=== PATIENT | male | born 1980 | race Caucasian/White ===

== ENCOUNTER 2017-12-18 13:09 | Emergency (ER) | payer OTHER ==
[2017-12-18 13:14] VITALS: TEMP 99.2
--- NOTE | 2017-12-18 15:04 | ED ---
Extremity Problem HPI - General Chief complaint: Extremity Problem,Nontraumatic Stated complaint: poss DVT Time Seen by Provider: 12/18/17 13:42 Source: patient, EMS, RN notes reviewed Mode of arrival: EMS Limitations: no limitations - History of Present Illness Initial comments: This a 37-year-old male presents emergency Department chief complaint of left leg pain. Patient states is concerning it that he may have a DVT. Patient has a history DVT in his left leg. Patient states he noticed an area in his medial thigh region that is a ropelike structure is painful and firm. Patient states he also has swelling to his left ankle he does admit that his been doing large amount moving walking up and down steps. He states proximal 42 steps. Patient denies paresthesias no trauma that he knows of. Patient denies chest pain or shortness of breath. - Related Data Previous Rx's Medication Instructions Recorded Naproxen 500 mg PO BID #30 tablet 12/18/17 Allergies Allergy/AdvReac Type Severity Reaction Status Date / Time lisinopril Allergy Intermediate Rapid Verified 12/18/17 14:04 Heart Rate ibuprofen [From Motrin] AdvReac Intermediate Nausea Verified 12/18/17 14:04 Review of Systems ROS Statement: Those systems with pertinent positive or pertinent negative responses have been documented in the HPI. ROS Other: All systems not noted in ROS Statement are negative. Past Medical History Past Medical History: Deep Vein Thrombosis (DVT), Hypertension Additional Past Medical History / Comment(s): bruised ribs, used to have HTN History of Any Multi-Drug Resistant Organisms: None Reported Past Surgical History: No Surgical Hx Reported Additional Past Surgical History / Comment(s): Stitches Past Anesthesia/Blood Transfusion Reactions: No Reported Reaction Additional Past Anesthesia/Blood Transfusion Reaction / Comment(s): Never had either Past Psychological History: No Psychological Hx Reported Smoking Status: Current every day smoker Past Alcohol Use History: Daily Past Drug Use History: Marijuana, Prescription Drug Abuse - Past Family History Mother Family Medical History: Cancer Additional Family Medical History / Comment(s): Mother at age 53 from cancer to the bones. Father Family Medical History: Diabetes Mellitus Additional Family Medical History / Comment(s): Father is alive at age 63 with history of diabetes. Sister(s) Additional Family Medical History / Comment(s): Patient has 2 half sisters that are healthy. He does not have any brothers. He has 1 son and 1 daughter that are healthy with no major medical problems. General Exam Limitations: no limitations General appearance: alert, in no apparent distress Head exam: Present: atraumatic, normocephalic, normal inspection Respiratory exam: Present: normal lung sounds bilaterally. Absent: respiratory distress, wheezes, rales, rhonchi, stridor Cardiovascular Exam: Present: regular rate, normal rhythm, normal heart sounds. Absent: systolic murmur, diastolic murmur, rubs, gallop, clicks Extremities exam: Present: other (Left side just proximal to the knee there is appears very superficial thrombophlebitis ropelike structure Tegretol palpation mild erythema, there is no calf tenderness or swelling on the medial ankle and foot region is mildly tender. Pulses are equal bilaterally) Skin exam: Present: warm, dry, intact, normal color. Absent: rash Course Vital Signs 12/18/17 13:12 Temperature 99.2 F Pulse Rate 77 Respiratory 20 Rate Blood Pressure 166/101 O2 Sat by Pulse 99 Oximetry Medical Decision Making - Medical Decision Making 37-year-old male presents from for left leg pain. Patient had NEGATIVE FOR ACUTE DVT. PATIENT HAS SUPERFICIAL THROMBOPHLEBITIS. PATIENT WAS STARTED ON NAPROXEN HE STATES IBUPROFEN JUST UPSETS HIS STOMACH. HE IS ADVISED TO TAKE WITH FOOD. PATIENT WILL RETURN FOR ANY WORSENING SYMPTOMS. PATIENT WILL FOLLOW -UP WITH ON-CALL primary care physician. Disposition Clinical Impression: Superficial thrombophlebitis Disposition: HOME SELF-CARE Condition: Stable Instructions: Superficial Thrombophlebitis (ED) Additional Instructions: Please return to the Emergency Department if symptoms worsen or any other concerns. Prescriptions: Naproxen 500 mg PO BID #30 tablet Is patient prescribed a controlled substance at d/c from ED?: No Referrals: Clementina Ramos MD [STAFF PHYSICIAN] - 1-2 days Time of Disposition: 15:50
--- NOTE | 2017-12-18 15:37 | US ---
EXAMINATION TYPE: US venous doppler duplex LE LT DATE OF EXAM: 12/18/2017 1:34 PM COMPARISON: US 2017 CLINICAL HISTORY: Pain. Left leg pain, history of LLE DVT SIDE PERFORMED: Left TECHNIQUE: The lower extremity deep venous system is examined utilizing real time linear array sonog makenna with graded compression, doppler sonography and color-flow sonography. VESSELS IMAGED: External Iliac Vein (EIV) Common Femoral Vein Deep Femoral Vein Greater Saphenous Vein * Femoral Vein Popliteal Vein Small Saphenous Vein * Proximal Calf Veins (* superficial vessels) Left Leg: Appears negative for DVT Scanned at patient's area's of pain: appears positive for thrombus at upper mid and distal medial t high and at ankle within superficial vessel that appears to be a branch of the greater saphenous vein . IMPRESSION: 1. Superficial thrombophlebitis. 2. No evidence for DVT at this time.
--- NOTE | 2017-12-18 16:10 | XR ---
Left foot HISTORY: Left foot pain Correlation to prior foot 04/29/2015 There is cortical thickening at the proximal phalanx of the fourth digit of the left foot, possible p eriosteal reaction which is new in the interval. No dislocation. Alignment is maintained. Joint space s show a similar appearance. Degenerative change present at the first metatarsophalangeal joint. Ther e is a plantar calcaneal spur present. IMPRESSION: Cortical thickening at the fourth digit as described, correlate for history of trauma. Co nsider foot MRI. Plantar calcaneal spur.
[2017-12-18 16:12] VITALS: BP 172/90; PULSE 60; RESP 18
== END 2017-12-18 16:11 | disposition home or self-care (01) ==
LOC: EC 13:09
DX: I80.02 Phlebitis and thrombophlebitis of superficial vessels of left lower extremity (principal); F17.200 Nicotine dependence, unspecified, uncomplicated; Z86.718 Personal history of other venous thrombosis and embolism; Z88.6 Allergy status to analgesic agent; Z88.8 Allergy status to other drugs, medicaments and biological substances
CPT/HCPCS: 99284

== ENCOUNTER 2018-08-25 16:34 | Observation (INO) | payer OTHER ==
--- NOTE | 2018-08-25 17:26 | ED ---
General Adult HPI - General Chief complaint: Extremity Injury, Lower Stated complaint: RT LEG PAIN, POSS BLOODCLOT Source: patient, RN notes reviewed, old records reviewed Mode of arrival: ambulatory Limitations: no limitations - History of Present Illness Initial comments: 38-year-old male patient past medical history of DVT this ED with right posterior calf pain. Patient states that he stepped taking anticoagulants approximately 3 years ago he had medical advice. Patient states that approximately 2 days ago he began developing pain in his right posterior calf. Patient additionally has pain behind his knee. Patient states this feels similar to when he had a DVT in the past. Patient denies chest pain, shortness of breath, abdominal pain, nausea around area, fever chills, any other symptoms. Systemic: Pt denies fatigue, myalgia, fever/chills, rash. Pt denies weakness, night sweats, weight loss. Neuro: Pt denies headache, visual disturbances, syncope or pre-syncope. HEENT: Pt denies ocular discharge or irritation, otalgia, rhinorrhea, pharyngitis or notable lymphadenopathy. Cardiopulmonary: Pt denies chest pain, SOB, heart palpitations, dyspnea on exertion. Abdominal/GI: Pt denies abdominal pain, n/v/d. : Pt denies dysuria, burning w/ urination, frequency/urgency. Denies new onset urinary or bowel incontinence. MSK: Pt denies myalgia, loss of strength or function in extremities. Neuro: Pt denies new onset weakness, paresthesias. - Related Data Previous Rx's Medication Instructions Recorded Apixaban [Eliquis] 5 mg PO BID #60 tab 08/26/18 traMADol HCL [Ultram] 50 mg PO Q4HR PRN 3 Days #18 tab 08/26/18 Allergies Allergy/AdvReac Type Severity Reaction Status Date / Time lisinopril Allergy Intermediate Rapid Verified 08/25/18 20:57 Heart Rate ibuprofen [From Motrin] AdvReac Intermediate Nausea Verified 08/25/18 20:57 Review of Systems ROS Statement: Those systems with pertinent positive or pertinent negative responses have been documented in the HPI. ROS Other: All systems not noted in ROS Statement are negative. Past Medical History Past Medical History: Deep Vein Thrombosis (DVT), Hypertension Additional Past Medical History / Comment(s): bruised ribs, used to have HTN History of Any Multi-Drug Resistant Organisms: None Reported Past Surgical History: No Surgical Hx Reported Additional Past Surgical History / Comment(s): Stitches Past Anesthesia/Blood Transfusion Reactions: No Reported Reaction Additional Past Anesthesia/Blood Transfusion Reaction / Comment(s): Never had either Past Psychological History: No Psychological Hx Reported Smoking Status: Current every day smoker Past Alcohol Use History: Occasional Past Drug Use History: None Reported, Marijuana, Prescription Drug Abuse - Past Family History Mother Family Medical History: Cancer Additional Family Medical History / Comment(s): Mother at age 53 from cancer to the bones. Father Family Medical History: Diabetes Mellitus Additional Family Medical History / Comment(s): Father is alive at age 63 with history of diabetes. Sister(s) Additional Family Medical History / Comment(s): Patient has 2 half sisters that are healthy. He does not have any brothers. He has 1 son and 1 daughter that are healthy with no major medical problems. General Exam - General Exam Comments Initial Comments: Constitutional: NAD, AOX3, Pt has pleasant affect. HEENT: NC/AT, trachea midline, neck supple, no lymphadenopathy. Posterior pharynx non erythematous, without exudates. External ears appear normal, without discharge. Mucous membranes moist. Eyes PERRLA, EOM intact. There is no scleral icterus. No pallor noted. Cardiopulmonary: RRR, no murmurs, rubs or gallops, no JVD noted. Lungs CTAB in anterior and posterior bailey. No peripheral edema. Abdominal exam: Abdomen soft and non-distended. Abdomen non-tender to palpation in all 4 quadrants. Bowel sounds active in LLQ. No hepatosplenomegaly. No ecchymosis Neuro: CN II-XII grossly intact. No nuchal rigidity. MSK: R posterior calf tenderness and posterior knee tenderness. Homans sign negative. L posterior calf non tender to palpation, L homans sign negative. Posterior tibialis, dosalis pedis and radial pulse +2 bilaterally. Sensation intact in upper and lower extremities. Full active ROM in upper and lower extremities, 5/5 stregnth. Pt ambulatory without difficulty. Limitations: no limitations Course Vital Signs 08/25/18 08/25/18 16:37 19:30 Temperature 98.1 F 98 F Pulse Rate 74 71 Respiratory 18 16 Rate Blood Pressure 169/103 159/90 O2 Sat by Pulse 100 98 Oximetry Medical Decision Making - Medical Decision Making 38-year-old male patient past medical history of DVT this ED with right posterior calf pain. Patient states that he stepped taking anticoagulants approximately 3 years ago he had medical advice. Patient states that approximately 2 days ago he began developing pain in his right posterior calf. Patient additionally has pain behind his knee. Patient states this feels similar to when he had a DVT in the past. Patient denies chest pain, shortness of breath, abdominal pain, nausea around area, fever chills, any other symptoms. Vital signs WNL upon presentation to ED. physical exam displayed right posterior calf tenderness, right posterior knee tenderness, right positive Homans sign. Distal pulses intact. No other pathologic findings identified on O2 investigations revealed nonpassive CBC, CMP, coagulation studies. EKG is not concerning for acute ischemia. Laboratory venous Doppler revealed right leg DVT from proximal calf veins through proximal femoral. Patient heparinized and admitted to the floor. Case discussed with Dr. Sherman. - Lab Data Result diagrams: 08/27/18 07:12 08/25/18 17:45 Lab Results 08/25/18 08/25/18 08/25/18 Range/Units 17:45 17:45 17:45 WBC 5.7 (3.8-10.6) k/uL RBC 5.55 (4.30-5.90) m/uL Hgb 17.0 (13.0-17.5) gm/dL Hct 52.6 (39.0-53.0) % MCV 94.8 (80.0-100.0) fL MCH 30.7 (25.0-35.0) pg MCHC 32.4 (31.0-37.0) g/dL RDW 13.7 (11.5-15.5) % Plt Count 140 L (150-450) k/uL Neutrophils % 64 % Lymphocytes % 22 % Monocytes % 8 % Eosinophils % 3 % Basophils % 0 % Neutrophils # 3.7 (1.3-7.7) k/uL Lymphocytes # 1.3 (1.0-4.8) k/uL Monocytes # 0.5 (0-1.0) k/uL Eosinophils # 0.2 (0-0.7) k/uL Basophils # 0.0 (0-0.2) k/uL PT 10.8 (9.0-12.0) sec INR 1.0 (<1.2) APTT 27.1 (22.0-30.0) sec Sodium 139 (137-145) mmol/L Potassium 4.4 (3.5-5.1) mmol/L Chloride 101 (98-107) mmol/L Carbon Dioxide 28 (22-30) mmol/L Anion Gap 10 mmol/L BUN 7 L (9-20) mg/dL Creatinine 0.56 L (0.66-1.25) mg/dL Est GFR (CKD-EPI)AfAm >90 (>60 ml/min/1.73 sqM) Est GFR (CKD-EPI)NonAf >90 (>60 ml/min/1.73 sqM) Glucose 91 (74-99) mg/dL Calcium 9.6 (8.4-10.2) mg/dL Total Bilirubin 1.1 (0.2-1.3) mg/dL AST 19 (17-59) U/L ALT 21 (21-72) U/L Alkaline Phosphatase 65 (38-126) U/L Total Protein 7.0 (6.3-8.2) g/dL Albumin 3.8 (3.5-5.0) g/dL - EKG Data -: EKG Interpreted by Me (and dr sherman) EKG Comments: Ventricular rate 71,. 124, QRS 98, QT/QTC 392/4.5. Normal sinus rhythm with sinus arrhythmia. incomplete R branch block. no concerns for acute ischemia. Disposition Clinical Impression: DVT (deep venous thrombosis) Disposition: ADMITTED IP TO THIS [facility] Condition: Good
[2018-08-25 18:01] LABS: Basophils % (A) 0 %; Eosinophils # (A) 0.2 k/uL (0-0.7); Eosinophils % (A) 3 %; HCT 52.6 % (39.0-53.0); Lymphocytes # (A) 1.3 k/uL (1.0-4.8); Lymphocytes % (A) 22 %; MCH 30.7 pg (25.0-35.0); MCHC 32.4 g/dL (31.0-37.0); MCV 94.8 fL (80.0-100.0); Mean Platelet Volume 7.9; Monocytes # (A) 0.5 k/uL (0-1.0); Monocytes % (A) 8 %; Neutrophils # (A) 3.7 k/uL (1.3-7.7); Neutrophils % (A) 64 %; Platelet Count 140 k/uL (150-450); RBC 5.55 m/uL (4.30-5.90); RDW 13.7 % (11.5-15.5); WBC 5.7 k/uL (3.8-10.6)
--- NOTE | 2018-08-25 18:11 | US ---
EXAMINATION TYPE: US venous doppler duplex LE DATE OF EXAM: 08/25/2018 5:45 PM COMPARISON: NONE CLINICAL HISTORY: Pain. rt leg pain, h/o superficial and deep DVT, not on thinners SIDE PERFORMED: bilateral TECHNIQUE: The lower extremity deep venous system is examined utilizing real time linear array sonog makenna with graded compression, doppler sonography and color-flow sonography. VESSELS IMAGED: External Iliac Vein (EIV) Common Femoral Vein Deep Femoral Vein Greater Saphenous Vein * Femoral Vein Popliteal Vein Small Saphenous Vein * Proximal Calf Veins (* superficial vessels) Right Leg: Appears positive with thrombus noted from proximal calf veins extending up through prox f emoral vein, noncompressible veins with no color flow detected. Left Leg: Appears negative for DVT IMPRESSION: No evidence of deep venous thrombosis in the left leg. There is acute deep venous thrombo sis in the right leg involving femoral popliteal and tibial veins.
[2018-08-25 18:13] LABS: ALT 21 U/L (21-72); AST 19 U/L (17-59); Albumin 3.8 g/dL (3.5-5.0); Alkaline Phosphatase 65 U/L (38-126); Anion Gap 10 mmol/L; Blood Urea Nitrogen 7 mg/dL (9-20); Calcium 9.6 mg/dL (8.4-10.2); Carbon Dioxide 28 mmol/L (22-30); Chloride 101 mmol/L (98-107); Glucose 91 mg/dL (74-99); Partial Thromboplastin Time 27.1 sec (22.0-30.0); Potassium 4.4 mmol/L (3.5-5.1); Prothrombin Time 10.8 sec (9.0-12.0); Sodium 139 mmol/L (137-145); Total Bilirubin 1.1 mg/dL (0.2-1.3)
[2018-08-25] MEDS ORDERED: HYDROcodone/APAP 5-325MG 1 EACH TAB PO STA ×2 (19:11→22:07)
[2018-08-25] MEDS ORDERED: HEPARIN SODIUM,PORCINE 5,000 UNIT/ML 1 ML VIAL IV STA (20:24)
[2018-08-25] MEDS ORDERED: NALOXONE 0.4 MG/ML 1 ML VIAL IV PRN (20:42)
[2018-08-25] MEDS ORDERED: ACETAMINOPHEN TAB 325 MG TAB PO PRN (20:42)
[2018-08-25] MEDS ORDERED: NICOTINE 14MG/24HR PATCH TRANSDERM STA (22:07)
[2018-08-26] MEDS ORDERED: HEPARIN SODIUM,PORCINE 10,000 UNIT/ML 1 ML VIAL IV ONE (00:10)
[2018-08-26] MEDS ORDERED: HEPARIN SODIUM,PORCINE 5,000 UNIT/ML 1 ML VIAL IV PRN (00:10)
[2018-08-26] MEDS ORDERED: HYDROcodone/APAP 5-325MG 1 EACH TAB PO PRN (00:15)
[2018-08-26] MEDS: HYDROcodone/APAP 5-325MG 1 EACH TAB PO PRN ×5 (01:25→23:52)
[2018-08-26] MEDS: HEPARIN SOD,PORK IN 0.45% NACL 25,000 UNIT in 0.45% NACL 1 250ML.BAG IV SCH ×2 (01:29→17:52)
[2018-08-26 08:11] LABS: Basophils % (A) 1 %; Eosinophils # (A) 0.2 k/uL (0-0.7); Eosinophils % (A) 3 %; HCT 51.1 % (39.0-53.0); HGB 16.6 gm/dL (13.0-17.5); Lymphocytes # (A) 1.5 k/uL (1.0-4.8); Lymphocytes % (A) 28 %; MCH 31.3 pg (25.0-35.0); MCHC 32.5 g/dL (31.0-37.0); MCV 96.2 fL (80.0-100.0); Monocytes # (A) 0.4 k/uL (0-1.0); Monocytes % (A) 7 %; Neutrophils # (A) 3.2 k/uL (1.3-7.7); Neutrophils % (A) 60 %; Platelet Count 138 k/uL (150-450); RBC 5.31 m/uL (4.30-5.90); RDW 13.6 % (11.5-15.5); WBC 5.4 k/uL (3.8-10.6)
[2018-08-26 08:21] LABS: Partial Thromboplastin Time 43.7 sec (22.0-30.0); Prothrombin Time 10.4 sec (9.0-12.0)
[2018-08-26] MEDS: KETOROLAC 30 MG/ML 1 ML VIAL IVP PRN (16:09)
--- NOTE | 2018-08-26 16:26 | P.HPIM ---
History of Present Illness -38-year-old male came in with complaints of right leg pain found to have extensive DVT involving femoral popliteal and tibial veins. Patient had history of DVT in the past and then a superficial thrombus patient was on anti- correlation the past. Patient denied any fever chills patient denied any chest pain nausea vomiting abdominal pain patient did not have any recent surgery is a smoker denied any family history of cancers are blood clots in the family. Patient denied any recent prolonged travel. Is comparing of severe pain in the right leg Review of Systems REVIEW OF SYSTEMS: CONSTITUTIONAL: No fever, no malaise, no fatigue. HEENT: No recent visual problems or hearing problems. Denied any sore throat. CARDIOVASCULAR: No chest pain, orthopnea, PND, no palpitations, no syncope. PULMONARY: No shortness of breath, no cough, no hemoptysis. GASTROINTESTINAL: No diarrhea, no nausea, no vomiting, no abdominal pain. NEUROLOGICAL: No headaches, no weakness, no numbness. HEMATOLOGICAL: Denies any bleeding or petechiae. GENITOURINARY: Denies any burning micturition, frequency, or urgency. MUSCULOSKELETAL/RHEUMATOLOGICAL: Denies any joint pain, swelling, or any muscle pain. ENDOCRINE: Denies any polyuria or polydipsia. The rest of the 14-point review of systems is negative. Past Medical History Past Medical History: Deep Vein Thrombosis (DVT), Hypertension Additional Past Medical History / Comment(s): bruised ribs, used to have HTN History of Any Multi-Drug Resistant Organisms: None Reported Past Surgical History: No Surgical Hx Reported Additional Past Surgical History / Comment(s): Stitches Past Anesthesia/Blood Transfusion Reactions: No Reported Reaction Additional Past Anesthesia/Blood Transfusion Reaction / Comment(s): Never had either Past Psychological History: No Psychological Hx Reported Smoking Status: Current every day smoker Past Alcohol Use History: Occasional Additional Past Alcohol Use History / Comment(s): Patient is a smoker one pack per day since he was 19 years of age. He states he uses marijuana rarely maybe about once a month. Patient does have history of prescription drug abuse with [place]. Drinks about a pack of a light beer a day Past Drug Use History: None Reported, Marijuana, Prescription Drug Abuse - Past Family History Mother Family Medical History: Cancer Additional Family Medical History / Comment(s): Mother at age 53 from cancer to the bones. Father Family Medical History: Diabetes Mellitus Additional Family Medical History / Comment(s): Father is alive at age 63 with history of diabetes. Sister(s) Additional Family Medical History / Comment(s): Patient has 2 half sisters that are healthy. He does not have any brothers. He has 1 son and 1 daughter that are healthy with no major medical problems. Medications and Allergies Home Medications Medication Instructions Recorded Confirmed Type Apixaban [Eliquis] 5 mg PO BID #60 tab 08/26/18 Rx traMADol HCL [Ultram] 50 mg PO Q4HR PRN 3 Days #18 tab 08/26/18 Rx Allergies Allergy/AdvReac Type Severity Reaction Status Date / Time lisinopril Allergy Intermediate Rapid Verified 08/25/18 20:57 Heart Rate ibuprofen [From Motrin] AdvReac Intermediate Nausea Verified 08/25/18 20:57 Physical Exam Vitals: Vital Signs Temp Pulse Pulse Pulse Resp BP BP 08/26/18 15:00 98.2 F 69 14 08/26/18 07:38 98.1 F 71 16 154/93 08/25/18 23:00 98.1 F 70 16 155/92 08/25/18 22:48 98.2 F 74 16 148/78 08/25/18 19:30 98 F 71 16 159/90 08/25/18 16:37 98.1 F 74 18 169/103 Pulse Ox 08/26/18 15:00 98 08/26/18 07:38 98 08/25/18 23:00 98 08/25/18 22:48 98 08/25/18 19:30 98 08/25/18 16:37 100 Intake and Output 08/26/18 08/26/18 08/26/18 06:59 14:59 22:59 Intake Total 1238.448 Output Total 400 Balance -400 1238.448 Intake: Intake, IV Titration 142.448 Amount Heparin Sod,Pork in 0.45% 142.448 NaCl 25,000 unit In 0.45 % NaCl 1 250ml.bag @ 18 UNITS/KG/HR 17.55 mls/hr IV .[id number] FOR[facility], 1928–1983 Rx#: [id number] Oral 1096 Output: Urine 400 PHYSICAL EXAMINATION: GENERAL: The patient is alert and oriented x3, not in any acute distress. Well developed, well nourished. HEENT: Pupils are round and equally reacting to light. EOMI. No scleral icterus. No conjunctival pallor. Normocephalic, atraumatic. No pharyngeal erythema. No thyromegaly. CARDIOVASCULAR: S1 and S2 present. No murmurs, rubs, or gallops. PULMONARY: Chest is clear to auscultation, no wheezing or crackles. ABDOMEN: Soft, nontender, nondistended, normoactive bowel sounds. No palpable organomegaly. MUSCULOSKELETAL: No joint swelling or deformity. EXTREMITIES: No cyanosis, clubbing, and does have mild edema of the right leg along with some tenderness NEUROLOGICAL: Gross neurological examination did not reveal any focal deficits. SKIN: No rashes. Results CBC & Chem 7: 08/26/18 07:03 08/25/18 17:45 Labs: Abnormal Lab Results - Last 24 Hours (Table) 08/25/18 08/25/18 08/26/18 Range/Units 17:45 17:45 07:03 Plt Count 140 L 138 L (150-450) k/uL APTT (22.0-30.0) sec BUN 7 L (9-20) mg/dL Creatinine 0.56 L (0.66-1.25) mg/dL 08/26/18 08/26/18 Range/Units 07:03 14:46 Plt Count (150-450) k/uL APTT 43.7 H 67.6 H (22.0-30.0) sec BUN (9-20) mg/dL Creatinine (0.66-1.25) mg/dL Thrombosis Risk Factor Assmnt - Choose All That Apply Any of the Below Risk Factors Present?: Yes Each Risk Factor Represents 3 Points: History of DVT/PE Thrombosis Risk Factor Assessment Total Risk Factor Score: 3 Thrombosis Risk Factor Assessment Level: Moderate Risk Assessment and Plan Plan: Deep venous thrombosis involving the right leg extensive DVT, vascular surgery evaluated the patient as well patient is expected to have posttraumatic pain because of which we'll use compression socks IV heparin will be discontinued patient was started on eliquis 10 mg twice a day for a week followed by 5 mg twice a day. has run postdated DVT and the second DVT patient will need lifelong anticoagulation. -Hypertension -Nicotine abuse: Counseling was provided
[2018-08-26] MEDS ORDERED: APIXABAN 5 MG TAB PO SCH ×2 (17:00→21:00)
--- NOTE | 2018-08-26 17:07 | CONS ---
DATE OF CONSULTATION: 08/26/2018 This is a 38-year-old gentleman who came with a right leg DVT. Ultrasound shows femoral and proximal calf DVT. No shortness of breath or chest pain. Patient has history of DVT in the left lower extremity in the past. Past medical history of hypertension controlled with medication. On examination, patient was seen in his room. Neck is supple, trachea central. Chest is clear on auscultation. Abdomen is soft. Brachial, radial and femoral pulses are present. Patient has no vascular compromise in right lower extremity. IMPRESSION: Deep venous thrombosis of the right leg. RECOMMENDATION: ANA MARIA godinez knee-high. The patient is on heparin. Will change to Eliquis. Patient will be seen by me in my office in 2 weeks. MMODL / IJN: [id number] / MTDD
[2018-08-26 21:38] VITALS: RESP 16
[2018-08-26] MEDS: FAMOTIDINE 20 MG TAB PO SCH (21:38)
[2018-08-27] MEDS: NICOTINE 14MG/24HR PATCH TRANSDERM SCH ×2 (02:30→10:01)
[2018-08-27] MEDS ORDERED: APIXABAN 5 MG TAB PO SCH (05:00)
[2018-08-27] MEDS: KETOROLAC 30 MG/ML 1 ML VIAL IVP PRN ×2 (05:20→13:13)
[2018-08-27] MEDS: HYDROcodone/APAP 5-325MG 1 EACH TAB PO PRN ×2 (06:19→13:11)
[2018-08-27 08:10] VITALS: BP 153/100; PULSE 78; TEMP 97.5
[2018-08-27 08:50] LABS: Basophils # (A) 0.1 k/uL (0-0.2); Basophils % (A) 1 %; Eosinophils # (A) 0.2 k/uL (0-0.7); Eosinophils % (A) 3 %; HCT 49.4 % (39.0-53.0); HGB 16.4 gm/dL (13.0-17.5); Lymphocytes # (A) 1.9 k/uL (1.0-4.8); Lymphocytes % (A) 30 %; MCH 31.6 pg (25.0-35.0); MCHC 33.1 g/dL (31.0-37.0); MCV 95.6 fL (80.0-100.0); Mean Platelet Volume 7.9; Monocytes # (A) 0.5 k/uL (0-1.0); Monocytes % (A) 9 %; Neutrophils # (A) 3.6 k/uL (1.3-7.7); Neutrophils % (A) 56 %; Platelet Count 170 k/uL (150-450); RBC 5.17 m/uL (4.30-5.90); RDW 13.5 % (11.5-15.5); WBC 6.4 k/uL (3.8-10.6)
[2018-08-27] MEDS: FAMOTIDINE 20 MG TAB PO SCH (09:56)
--- NOTE | 2018-08-27 12:46 | P.DS ---
Providers Date of admission: 08/25/18 20:41 Attending physician: Jl Bowers Consults: 08/25/18 20:38 Consult Physician Stat Consulting Provider: Gaurav Lau Consult Reason/Comments: proximal DVT Do you want consulting provider notified?: Yes Primary care physician: Stated None Hospital Course: patient was admitted for extensive DVT of the right leg extending up to the external iliacs. Patient is being discharged on Eliquis, may need to be transitioned to Coumadin as an outpatient since the this medication is not approved by his insurance. Patient is expected to have post-thrombotic pain because of extensive nature of his DVT presently doesn't have any chest pain or status of breath and patient was discharged today with compression socks for post-thrombotic pain patient followed gastro-surgery in 2 weeks. Patient will be referred to primary care physician PHYSICAL EXAMINATION: GENERAL: The patient is alert and oriented x3, not in any acute distress. Well developed, well nourished. HEENT: Pupils are round and equally reacting to light. EOMI. No scleral icterus. No conjunctival pallor. Normocephalic, atraumatic. No pharyngeal erythema. No thyromegaly. CARDIOVASCULAR: S1 and S2 present. No murmurs, rubs, or gallops. PULMONARY: Chest is clear to auscultation, no wheezing or crackles. ABDOMEN: Soft, nontender, nondistended, normoactive bowel sounds. No palpable organomegaly. MUSCULOSKELETAL: No joint swelling or deformity. EXTREMITIES: No cyanosis, clubbing, or pedal edema. NEUROLOGICAL: Gross neurological examination did not reveal any focal deficits. SKIN: No rashes. Plan - Discharge Summary Discharge Rx Participant: Yes New Discharge Prescriptions: New Apixaban [Eliquis] 5 mg PO BID #60 tab traMADol HCL [Ultram] 50 mg PO Q4HR PRN 3 Days #18 tab PRN Reason: Pain Discharge Medication List Apixaban [Eliquis] 5 mg PO BID #60 tab 08/26/18 [Rx] traMADol HCL [Ultram] 50 mg PO Q4HR PRN 3 Days #18 tab 08/26/18 [Rx] Follow up Appointment(s)/Referral(s): Gilmer Darby MD [REFERRING] - 1 Week None,Stated [Primary Care Provider] - 1-2 days Gaurav Lau MD [STAFF PHYSICIAN] - 2 Weeks Patient Instructions/Handouts: How to Stop Smoking (DC), Deep Vein Thrombosis ( DC), ANA MARIA Hose (DC) Discharge Disposition: HOME SELF-CARE
== END 2018-08-27 14:03 | disposition home or self-care (01) ==
LOC: EC 16:34 → INTOOBSV 20:41 → 4SSUR 20:41
PROVIDERS: ADMIT Internal Medicine; ATTEND Internal Medicine
DX: I82.411 Acute embolism and thrombosis of right femoral vein (principal); I82.441 Acute embolism and thrombosis of right tibial vein; I82.431 Acute embolism and thrombosis of right popliteal vein; I10 Essential (primary) hypertension; F17.210 Nicotine dependence, cigarettes, uncomplicated; Z88.6 Allergy status to analgesic agent; Z88.8 Allergy status to other drugs, medicaments and biological substances; Z86.718 Personal history of other venous thrombosis and embolism; Z83.3 Family history of diabetes mellitus; Z80.8 Family history of malignant neoplasm of other organs or systems
CPT/HCPCS: 96376 ×3; 96365; 96366; 96375; 99285; 36415; 94760; 93005; 80053; 85025 ×3; 85610 ×2; 85730 ×2; 93970; G0378 ×3; S4990 ×2; J1644 ×3; J1885 ×2; 96374

== ENCOUNTER → 2023-02-20 | Outpatient (CLI) | payer OTHER ==
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
== END ==
LOC: 3 N SLEEP 14:04
PROVIDERS: ATTEND Internal Medicine
DX: G47.33 Obstructive sleep apnea (adult) (pediatric) (principal); E66.9 Obesity, unspecified; F17.200 Nicotine dependence, unspecified, uncomplicated; I10 Essential (primary) hypertension; F32.A Depression, unspecified; S02.91XA Unspecified fracture of skull, initial encounter for closed fracture; V89.2XXA Person injured in unspecified motor-vehicle accident, traffic, initial encounter; Z88.6 Allergy status to analgesic agent; Z88.8 Allergy status to other drugs, medicaments and biological substances; Z68.37 Body mass index [BMI] 37.0-37.9, adult; Z99.89 Dependence on other enabling machines and devices
CPT/HCPCS: 99202